=== PATIENT | male | born 1970 | race Caucasian/White ===

== ENCOUNTER 2017-09-30 02:42 | Emergency (ER) | payer MEDICAID, OTHER ==
[2017-09-30 02:55] VITALS: BP 193/109
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
[2017-09-30] MEDS ORDERED: Metoclopramide 10 MG Tab PO ONE (03:28)
[2017-09-30] MEDS ORDERED: Acetaminophen/oxyCODONE 325-5 MG Tab PO ONE (03:28)
[2017-09-30] MEDS ORDERED: LORazepam 1 MG Tab PO ONE (03:28)
--- NOTE | 2017-09-30 08:00 | CR ---
Left ankle: Four views of the left ankle were obtained. Comparison: No prior left ankle exam. Small plantar spur is seen. Minimal spur is noted at the attachment of the Achilles tendon to the calcaneus. Soft tissue swelling is identified. No acute fracture, dislocation or other bony abnormality is identified. Impression: 1. Minimal calcaneal spurs. 2. Soft tissue swelling. 3. No acute bony abnormality is identified on left ankle study. Diagnostic code #2
== END 2017-09-30 03:57 | disposition home or self-care (01) ==
LOC: JD.ED 02:42
DX: S93.412A Sprain of calcaneofibular ligament of left ankle, initial encounter (principal); I10 Essential (primary) hypertension; F17.210 Nicotine dependence, cigarettes, uncomplicated; W18.49XA Other slipping, tripping and stumbling without falling, initial encounter; X50.9XXA Other and unspecified overexertion or strenuous movements or postures, initial encounter
CPT/HCPCS: 73610; 99284; A9270; 99283